=== PATIENT | female | born 1955 | race Hispanic/Latino ===

== ENCOUNTER 2016-10-26 10:43 | Emergency (ER) | payer MEDICARE, OTHER ==
[2016-10-26 11:13] VITALS: BP 139/89
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
[2016-10-26] MEDS ORDERED: TYLENOL PO ONE (12:51)
--- NOTE | 2016-10-26 13:23 | XRay Report ---
Left shoulder 3 views: Findings: Mild arthritic changes a.c. joint and glenohumeral joint. No fracture dislocation or soft tissue calcification. Normal acromiohumeral space. Impression: Arthritic changes a.c. joint and glenohumeral joint.
== END 2016-10-26 13:43 | disposition home or self-care (01) ==
LOC: ED 10:43
DX: M54.2 Cervicalgia (principal); I10 Essential (primary) hypertension; F17.200 Nicotine dependence, unspecified, uncomplicated; Z88.0 Allergy status to penicillin; Z88.8 Allergy status to other drugs, medicaments and biological substances; V89.2XXA Person injured in unspecified motor-vehicle accident, traffic, initial encounter; Y93.89 Activity, other specified; Y99.9 Unspecified external cause status; Y92.410 Unspecified street and highway as the place of occurrence of the external cause
CPT/HCPCS: 70450; 72125

== ENCOUNTER 2019-04-21 08:41 | Inpatient (IN) | payer MEDICARE ==
[2019-04-21] MEDS ORDERED: SODIUM CHLORIDE 0.9% 1000 ML 1,000 ML IV ONE (09:35)
[2019-04-21] MEDS ORDERED: LIDOCAINE 1%/EPINEPHRINE 1:100,000 VIAL (20 ML) INFILTRATI ONE ×2 (09:58)
[2019-04-21] MEDS ORDERED: SODIUM CHLORIDE 0.9% 500 ML 500 ML IV ONE ×2 (09:59→10:22)
[2019-04-21 10:26] LABS: Basophils % (Auto) 0.3 % (0.0-1.8); Eosinophils % (Auto) 0.1 % (0.0-4.3); Hemoglobin 14.9 gm/dl (10.1-14.3); Lymphocytes # (Auto) 0.6 K/mm3 (1.2-5.4); Lymphocytes % (Auto) 3.6 % (13.4-35.0); Mean Corpuscular HGB Conc 32 % (30-34); Mean Corpuscular Volume 97 fl (79-97); Monocytes % (Auto) 6.1 % (0.0-7.3); Platelet Count 295 K/mm3 (140-440); Red Blood Count 4.74 M/mm3 (3.65-5.03); Red Cell Distribution Width 13.3 % (13.2-15.2)
[2019-04-21 10:37] LABS: INR 1.05 (0.87-1.13)
[2019-04-21 10:38] LABS: Partial Thromboplastin Time 20.1 Sec. (24.2-36.6)
[2019-04-21 10:52] LABS: Albumin 3.5 g/dL (3.9-5); Bilirubin,Direct 1.2 mg/dL (0-0.2); Calcium 9.1 mg/dL (8.4-10.2)
--- NOTE | 2019-04-21 11:03 | Emergency Department Report ---
<MITCHELL MCDOWELL - Last Filed: 04/21/19 12:29> ED GI Bleed HPI - General Chief complaint: GI Bleed Stated complaint: RECTAL BLEEDING Time Seen by Provider: 04/21/19 09:20 Source: EMS Mode of arrival: Stretcher Limitations: Altered Mental Status - History of Present Illness Initial comments: This is a 64-year-old female toxic with acute signs of distress presents to the ED with c/o of gross hematochezia and abdominal pain 1 day. Patient stated has been drinking alcohol last night prior to the symptoms. Patient describes a bdominal pain as cramping and aching with level of 10/10 diffuse. Patient denies chest pain, short of breath, fever, chills, headache, stiff neck, numbness or tingling. Upon examination patient is lethargic. Patient denies any recent travels. Patient stated allergies to PCN. Patient stated PMH i ncludes hypertension. MD complaint: gross hematochezia -: days(s) Location: diffuse Radiation: none Severity scale (0 -10): 10 Quality: constant Consistency: constant Improves with: none Worsens with: none Context: alcohol abuse Associated Symptoms: abdominal pain, nausea, malaise. denies: vomiting, epistaxis, fever/chills, headaches, loss of appetite, easy bruising, rash, other bleeding, shortness of breath, syncope, weakness Treatments Prior to Arrival: none - Related Data Previous Rx's Medication Instructions Recorded Last Taken Type amLODIPine 10 mg PO QDAY #30 tablet 10/28/15 Unknown Rx cloNIDine [Catapres] 0.2 mg PO Q12HR #60 tablet 10/28/15 Unknown Rx lisinopriL [Zestril TAB] 40 mg PO QDAY #30 tablet 10/28/15 Unknown Rx Cyclobenzaprine [Flexeril] 10 mg PO TID PRN #12 tablet 10/26/16 Unknown Rx Ibuprofen [Motrin] 600 mg PO Q8H PRN #20 tablet 10/26/16 Unknown Rx Allergies Allergy/AdvReac Type Severity Reaction Status Date / Time Penicillins Allergy Severe Anaphylaxis Verified 10/26/16 11:08 meperidine HCl [From Demerol] AdvReac Intermediate Angioedema Verified 10/26/16 11:08 ED Review of Systems Constitutional: denies: chills, fever Eyes: denies: eye pain, eye discharge, vision change ENT: denies: ear pain, throat pain Respiratory: denies: cough, shortness of breath, wheezing Cardiovascular: denies: chest pain, palpitations Endocrine: no symptoms reported Gastrointestinal: abdominal pain, nausea, hematochezia. denies: vomiting, diarrhea, constipation, melena Genitourinary: denies: urgency, dysuria, discharge Musculoskeletal: denies: back pain, joint swelling, arthralgia Skin: denies: rash, lesions Neurological: denies: headache, weakness, paresthesias Psychiatric: denies: anxiety, depression Hematological/Lymphatic: denies: easy bleeding, easy bruising ED Past Medical Hx - Past Medical History Hx Hypertension: Yes Hx Congestive Heart Failure: No Hx Diabetes: No Hx Asthma: No Hx COPD: No - Social History Smoking Status: Current Every Day Smoker - Medications Home Medications: Home Medications Medication Instructions Recorded Confirmed Last Taken Type amLODIPine 10 mg PO QDAY #30 tablet 10/28/15 Unknown Rx cloNIDine [Catapres] 0.2 mg PO Q12HR #60 tablet 10/28/15 Unknown Rx lisinopriL [Zestril TAB] 40 mg PO QDAY #30 tablet 10/28/15 Unknown Rx Cyclobenzaprine [Flexeril] 10 mg PO TID PRN #12 tablet 10/26/16 Unknown Rx Ibuprofen [Motrin] 600 mg PO Q8H PRN #20 tablet 10/26/16 Unknown Rx ED Physical Exam - General Limitations: Altered Mental Status General appearance: alert, lethargic - Head Head exam: Present: atraumatic, normocephalic - Eye Eye exam: Present: normal appearance, PERRL, EOMI - Neck Neck exam: Present: normal inspection, full ROM. Absent: tenderness, meningismus, lymphadenopathy - Respiratory Respiratory exam: Present: normal lung sounds bilaterally. Absent: respiratory distress, wheezes - Cardiovascular Cardiovascular Exam: Present: regular rate, normal rhythm, normal heart sounds. Absent: bradycardia, tachycardia, irregular rhythm, systolic murmur, diastolic murmur, rubs, gallop - GI/Abdominal GI/Abdominal exam: Present: distended, tenderness, normal bowel sounds. Absent: guarding, rebound, rigid, diminished bowel sounds - Rectal Rectal exam: Present: normal rectal tone, heme (+) stool, bloody stool. Absent: fecal impaction, hemorrhoids, mass, tenderness - Extremities Exam Extremities exam: Present: full ROM - Back Exam Back exam: Present: full ROM - Neurological Exam Neurological exam: Present: alert, oriented X3 - Psychiatric Psychiatric exam: Present: flat affect - Skin Skin exam: Present: warm, dry, intact, normal color. Absent: rash ED Course - Consultations Consultation #1: 04/21/19 11:10 Patient has been consulted with Tin Boswell about patient history, physical e xam, and labs and examined and seen patient agrees to ED plan of care and admission. ED Medical Decision Making - Lab Data Result diagrams: 04/21/19 10:10 04/21/19 10:10 - Medical Decision Making This is a 64-year-old female that presents with GI bleed. Patient is stable currently and was examined by me and Dr. Campbell. Labs obtained. Labs obtained. Patient was resuscitated in the ER. 2 pack per blood cells administered. Vital signs improving. Dr. Valenzuela ([facility] gastroenter[facility]) has been consulted and agrees for admission. At time of admission, the patient does not seem toxic or ill in appearance. No acute signs of distress noted. Patient agrees to admission treatment plan of care. No further questions noted by the patient. ED Disposition Clinical Impression: Lower GI bleeding Hypotension Qualifiers: Hypotension type: unspecified hypotension type Qualified Code(s): I95.9 - Hypotension, unspecified Renal failure Qualifiers: Renal failure chronicity: acute on chronic Acute renal failure type: unspecified Chronic kidney disease stage: stage 4 (severe) Qualified Code(s): N17.9 - Acute kidney failure, unspecified Disposition: OP ADMIT IP TO THIS HOSP Condition: Stable Referrals: ANOOP LEE MD [Primary Care Provider] - 3-5 Days Forms: Accompanied Note <ALLISON CAMPBELL - Last Filed: 04/21/19 12:41> ED Review of Systems ROS: Stated complaint: RECTAL BLEEDING Other details as noted in HPI ED Course Vital Signs 04/21/19 04/21/19 10:22 12:14 Pulse Rate 63 68 Respiratory 15 18 Rate Blood Pressure 84/53 Blood Pressure 91/55 [Right] O2 Sat by Pulse 98 98 Oximetry - Reevaluation(s) Reevaluation #1: This is a pale and hypotensive patient on my encounter. She looks chronically ill and likely suffering from cirrhosis. She apparently has had bright red blood from her rectum today and a syncopal episode. She fell upon her knees and states that she actually tripped. However she is somewhat altered and I susp ect she probably passed out. She arrived with a blood pressure between 70 and 80 systolic. She was quite pale. She required emergency resuscitation. Patient stated that she had a history of uterine cancer but no history of GI bleeding Physical exam Very pale and poorly perfused conjunctiva HEENT dry mucosa Neck supple Chest clear to auscultation Cardiovascular tachycardic without murmur Abdomen hepatomegaly is suspected. Some mild and diffuse tenderness without distention or rebound Rectal exam per nurse practitioner Hoa no active bleeding no mass Neurological exam nonfocal lethargic Impression Significant if not massive lower GI bleeding Hypotension Cirrhosis Consider sepsis Procedure Central line right femoral vein Area was prepped and draped in usual fashion. It was anesthetized using about 8 mL of 1% lidocaine with epinephrine Access to dark venous blood was obtained. A 3 lm catheter was placed using the dilator and the usual Seldinger technique. It was sutured and dressed. Procedure was well tolerated. Plan Patient was given volume bolus. She was given 2 units of emergency release blood. Consult to GI doctor Abhay. He recommended a bleeding scan or CT angiogram of the patient's creatinine was normal. Further data and reassessment Patient's hemoglobin was remarkably normal. She does have an elevated white blood cell count. Blood cultures and lactic acid have been ordered. Cefepime has been ordered. Protonix has been ordered. A plain CT of the abdomen is ordered due to an elevated creatinine of greater than 3. A bleeding scan is ordered. The patient will be admitted to the hospitalist service probably the [facility] as her blood pressure has improved With the above intervention. On reassessment the patient was coherent with blood pressure about 100 systolic. Further diagnostic studies are pending. Additional diagnosis Abdominal pain etiology to be determined Renal failure probably acute Critical care time 70 minutes 04/21/19 11:18 ED Medical Decision Making - Lab Data Result diagrams: 04/21/19 10:10 04/21/19 10:10 Critical care attestation.: If time is entered above; I have spent that time in minutes in the direct care of this critically ill patient, excluding procedure time. ED Disposition Is pt being admited?: Yes Does the pt Need Aspirin: No Time of Disposition: :39
[2019-04-21] MEDS ORDERED: PANTOPRAZOLE 40 MG INJ IV ONE ×3 (11:26→23:55)
--- NOTE | 2019-04-21 11:34 | XRay Report ---
CHEST 1 VIEW INDICATION / CLINICAL INFORMATION: hypotension. COMPARISON: None available. FINDINGS: SUPPORT DEVICES: None. HEART / MEDIASTINUM: No significant abnormality. LUNGS / PLEURA: No significant pulmonary or pleural abnormality. No pneumothorax. ADDITIONAL FINDINGS: Mild subsegmental atelectasis is noted in both lower lungs. Eventration of the r ight hemidiaphragm. IMPRESSION: 1. No acute findings. Signer Name: Rd Zapata MD Signed: 04/21/2019 11:30 AM Workstation Name: [employer] ([id number]
[2019-04-21] MEDS ORDERED: MEROPENEM/NS 500 MG/50 ML 500 MG/50 ML BAG IV ONE (12:00)
[2019-04-21 12:20] LABS: Hematocrit 47.5 % (30.3-42.9); Hemoglobin 15.6 gm/dl (10.1-14.3); Mean Corpuscular HGB Conc 33 % (30-34); Mean Corpuscular Volume 96 fl (79-97); Platelet Count 225 K/mm3 (140-440); Red Blood Count 4.97 M/mm3 (3.65-5.03); Red Cell Distribution Width 14.7 % (13.2-15.2)
--- NOTE | 2019-04-21 12:20 | Cat Scan Report ---
CT abdomen pelvis wo con INDICATION / CLINICAL INFORMATION: abd pain. TECHNIQUE: All CT scans at this location are performed using CT dose reduction for ALARA by means of automated e xposure control. COMPARISON: None available. FINDINGS: Limited lower thoracic images show patchy opacity in the right lower lobe that could represent pneumo liam. ABDOMEN: Cholelithiasis. The liver, spleen, pancreas and kidneys are normal. No adrenal masses. No retroperitoneal adenopathy. A small fat-containing umbilical hernia is noted Fluid is demonstrated in the small bowel and colon. Mural edema and slight thickening of the transver se colon wall has the appearance of colitis. Pelvis: Small gas bubble is demonstrated in the urinary bladder, correlate for recent instrumentation. A 4 cm left ovarian cyst is identified. There are no dependent fluid collections seen in the pelvis. The appendix is normal. Degenerative changes are identified in the lumbar spine. IMPRESSION: 1. Colitis involving the transverse colon. 2. Airspace opacity in the right lower lobe may represent pneumonia. 3. Cholelithiasis. 4. 4 cm left ovarian cyst. 5. Umbilical hernia containing fat. Signer Name: Rd Zapata MD Signed: 04/21/2019 12:16 PM Workstation Name: [id number]
[2019-04-21] MEDS ORDERED: metroNIDAZOLE/NS 500 MG/100 ML 500 MG/100 ML BAG IV ONE (12:43)
[2019-04-21] MEDS ORDERED: ALBUTEROL 2.5 MG/3 ML NEBU IH PRN (13:47)
[2019-04-21] MEDS ORDERED: CYCLOBENZAPRINE 10 MG TAB PO PRN (13:48)
[2019-04-21 13:52] LABS: Band Neutrophils # (Manual) 5.5 K/mm3; Basophils % (Manual) 0 % (0.0-1.8); Eosinophils % (Manual) 0 % (0.0-4.3); Macrocytosis Few; Platelet Clumps Rare; Platelet Estimate Consistent w Auto; Total Cells Counted 100
[2019-04-21] MEDS ORDERED: SODIUM CHLORIDE 0.9% 1000 ML 1,000 ML IV SCH (14:00)
--- NOTE | 2019-04-21 14:06 | History and Physical Report ---
History of Present Illness Chief complaint: I can stop bleeding History of present illness: 64-year-old female with hypertension, nicotine dependence, alcohol dependence presents to ED for evaluation. Patient states that she was in her usual state of health but was awakened from sleep around 0300 hrs. and was found to have blood dripping from her backside. Patient also reports abdominal cramping over the past 1 day. Upon awakening from sleep this morning the patient was found to have experienced weakness and large volume blood coming from her her rectum. EMS was notified and upon arrival the patient was found to be in distress and transported to [facility]. Patient seen and evaluated in the emergency department. Patient lab and imaging studies reviewed. Patient found to have bright red blood per rectum on physical exam with blood in the rectal vault. Patient also found to have generalized weakness, lethargy. Pt hypotensive with Systolic blood pressure in the 70's. Patient rectal area is covered with blood, patient blood sheets are soaked with blood. GI team consulted in ED. Patient found to have active GI bleeding, acute kidney injury, systemic inflammatory response syndrome, and alcoholic liver disease. Patient admitted to [facility] for medical stabilization and treatment of GI bleed due to high likelihood of decompensation. Patient denies chest pain, short of breath, fever, chills, headache, stiff neck, numbness or tingling. No prior admission for review. No medication listed at time of admission for reconciliation. Past History Past Medical History: hypertension, other (see HPI) Past Surgical History: No surgical history, Other (reviewed) Social history: , smoking, alcohol abuse Family history: hypertension Medications and Allergies Allergies Allergy/AdvReac Type Severity Reaction Status Date / Time Penicillins Allergy Severe Anaphylaxis Verified 10/26/16 11:08 meperidine HCl [From Demerol] AdvReac Intermediate Angioedema Verified 10/26/16 11:08 Home Medications Medication Instructions Recorded Confirmed Last Taken Type amLODIPine 10 mg PO QDAY #30 tablet 10/28/15 Unknown Rx cloNIDine [Catapres] 0.2 mg PO Q12HR #60 tablet 10/28/15 Unknown Rx lisinopriL [Zestril TAB] 40 mg PO QDAY #30 tablet 10/28/15 Unknown Rx Cyclobenzaprine [Flexeril] 10 mg PO TID PRN #12 tablet 10/26/16 Unknown Rx Ibuprofen [Motrin] 600 mg PO Q8H PRN #20 tablet 10/26/16 Unknown Rx Active Meds: Active Medications Albuterol (Proventil) 2.5 mg IH Q3HRT PRN PRN Reason: Shortness Of Breath Cyclobenzaprine HCl (Flexeril) 10 mg PO TID PRN PRN Reason: Muscle Spasm Sodium Chloride (Nacl 0.9% 1000 Ml) 1,000 mls @ 42 mls/hr IV DIRECT DOMINGO Sodium Chloride (Sodium Chloride Flush Syringe 10 Ml) 10 ml IV BID DOMINGO Sodium Chloride (Sodium Chloride Flush Syringe 10 Ml) 10 ml IV PRN PRN PRN Reason: LINE FLUSH Review of Systems Constitutional: weakness, no weight gain, no fever, no chills Ears, nose, mouth and throat: no ear pain, no ear discharge, no tinnitis, no nose pain Breasts: no change in shape, no swelling, no mass Cardiovascular: no chest pain, no orthopnea, no palpitations, no edema Respiratory: no cough, no cough with sputum Gastrointestinal: diarrhea, BRBPR, no nausea, no vomiting, no constipation Genitourinary Female: no flank pain, no menorrhagia, no dysuria, no urinary frequency, no urgency Rectal: no pain, no incontinence, no bleeding Musculoskeletal: no neck stiffness, no neck pain, no shooting arm pain, no shooting leg pain, no leg numbness/tingling Integumentary: no rash, no pruritis, no redness, no wounds, no jaundice, no boils Neurological: no transient paralysis, no paralysis, no parathesias, no numbness, no tremors Psychiatric: no memory loss, no sleep disturbances, no insomnia, no hypersomnia, no change in appetite, no suicidal ideation, no disorientation Endocrine: no cold intolerance, no polyphagia, no polydipsia, no nocturia, no excessive sweating Hematologic/Lymphatic: no easy bruising, no lymphadenopathy, no lymphedema Allergic/Immunologic: no urticaria, no allergic rhinitis, no wheezing, no persistent infections, no anaphylaxis Exam - Constitutional Vitals: Temp Pulse Resp BP Pulse Ox 97.4 F L 76 18 124/66 98 04/21/19 13:25 04/21/19 13:25 04/21/19 13:25 04/21/19 13:25 12/25/19 13:25 General appearance: Present: mild distress, disheveled - EENT Eyes: Present: PERRL ENT: hearing intact, clear oral mucosa - Neck Neck: Present: supple, normal ROM - Respiratory Respiratory effort: normal Respiratory: bilateral: CTA - Cardiovascular Rhythm: other (tachycardia) Heart Sounds: Present: S1 & S2. Absent: rub, click - Extremities Extremities: pulses symmetrical, No edema Peripheral Pulses: within normal limits - Abdominal General gastrointestinal: Present: soft, non-tender, non-distended, normal bowel sounds Female genitourinary: Present: normal - Integumentary Integumentary: Present: clear, warm, dry - Musculoskeletal Musculoskeletal: gait normal, strength equal bilaterally - Psychiatric Psychiatric: appropriate mood/affect, intact judgment & insight - Neurologic Neurologic: CNII-XII intact, moves all extremities Results - Labs CBC & Chem 7: 04/21/19 11:43 04/21/19 10:10 Labs: Abnormal lab results 04/21/19 04/21/19 04/21/19 Range/Units 10:10 10:10 10:10 WBC 15.9 H (4.5-11.0) K/mm3 Hgb 14.9 H (10.1-14.3) gm/dl Hct 46.0 H (30.3-42.9) % Lymph % (Auto) 3.6 L (13.4-35.0) % Lymph # 0.6 L (1.2-5.4) K/mm3 Berks # 1.0 H (0.0-0.8) K/mm3 Seg Neutrophils % 89.9 H (40.0-70.0) % Lymphocytes % (Manual) (13.4-35.0) % Seg Neutrophils # 14.3 H (1.8-7.7) K/mm3 Seg Neutrophils # Man (1.8-7.7) K/mm3 Lymphocytes # (Manual) (1.2-5.4) K/mm3 APTT 20.1 L (24.2-36.6) Sec. Carbon Dioxide 17 L (22-30) mmol/L BUN 49 H (7-17) mg/dL Creatinine 3.5 H (0.7-1.2) mg/dL Glucose 124 H (65-100) mg/dL Total Bilirubin 1.80 H (0.1-1.2) mg/dL Direct Bilirubin 1.2 H (0-0.2) mg/dL AST 102 H (5-40) units/L ALT 82 H (7-56) units/L Alkaline Phosphatase 150 H (35-129) units/L Albumin 3.5 L (3.9-5) g/dL Crossmatch 04/21/19 04/21/19 Range/Units 10:10 11:43 WBC 14.9 H (4.5-11.0) K/mm3 Hgb 15.6 H (10.1-14.3) gm/dl Hct 47.5 H (30.3-42.9) % Lymph % (Auto) (13.4-35.0) % Lymph # (1.2-5.4) K/mm3 Berks # (0.0-0.8) K/mm3 Seg Neutrophils % (40.0-70.0) % Lymphocytes % (Manual) 6.0 L (13.4-35.0) % Seg Neutrophils # (1.8-7.7) K/mm3 Seg Neutrophils # Man 8.0 H (1.8-7.7) K/mm3 Lymphocytes # (Manual) 0.9 L (1.2-5.4) K/mm3 APTT (24.2-36.6) Sec. Carbon Dioxide (22-30) mmol/L BUN (7-17) mg/dL Creatinine (0.7-1.2) mg/dL Glucose (65-100) mg/dL Total Bilirubin (0.1-1.2) mg/dL Direct Bilirubin (0-0.2) mg/dL AST (5-40) units/L ALT (7-56) units/L Alkaline Phosphatase (35-129) units/L Albumin (3.9-5) g/dL Crossmatch See Detail Assessment and Plan - Patient Problems (1) GI bleed Current Visit: Yes Status: Acute Qualifiers: GI bleed type/associated pathology: melena Qualified Code(s): K92.1 - Melena Plan to address problem: Patient admitted to [facility], GI consulted in emergency department, IV PPI therapy, serial CBC every 6 hours, notify GI team if hemoglobin drops more than 1 g on successive CBCs, if patient rebleeds order stat repeat bleeding scan, and notify GI team. (2) SHAZIA (acute kidney injury) Current Visit: Yes Status: Acute Plan to address problem: IV fluid resuscitation therapy, monitor urine output every shift, urine electrolytes, BMP, repeat BMP in a.m., monitor serum creatinine. (3) SIRS (systemic inflammatory response syndrome) Current Visit: Yes Status: Acute Plan to address problem: CBC, CMP, chest x-ray, urinalysis, empiric antibiotic therapy, repeat CBC in a.m., IV fluid resuscitation therapy. (4) EtOH dependence Current Visit: Yes Status: Acute Qualifiers: Complication of substance-induced condition: with perceptual disturbance Plan to address problem: CIWA protocol, banana bag, supportive care, IV Ativan as needed. (5) Nicotine dependence unspecified, with withdrawal Current Visit: Yes Status: Acute Qualifiers: Nicotine product type: cigarettes Qualified Code(s): F17.213 - Nicotine dependence, cigarettes, with withdrawal Plan to address problem: Smoking cessation counseling supportive care ,+15 minutes (6) DVT prophylaxis Current Visit: Yes Status: Acute Plan to address problem: SCD to bilateral lower extremities while in bed, hold anticoagulation now due to GI bleeding
[2019-04-21] MEDS ORDERED: LORazepam 2 MG/ML VIAL IV PRN (14:14)
[2019-04-21] MEDS ORDERED: THIAMINE 100 MG, FOLIC ACID 1 MG, MULTIPLE VITAMIN INJ, ADULT 10 ML in SODIUM CHLORIDE ... IV ONE (14:30)
--- NOTE | 2019-04-21 15:19 | Gastroenterology Consultation ---
History of Present Illness - Reason for Consult Consult date: 04/21/19 hematochezia Requesting physician: ALLISON CAMPBELL - History of Present Illness This is a 64-year-old female here with severe gross hematochezia and abdominal pain 1 day. Patient denies history GI bleed. She reports was drinking alcohol last night prior to the symptoms. She developed right sided abdominal pain that is cramping, severe, radiates to the entire abd, worse with nothing better with nothing, then developed associated gary hematochezia and came to ER Here she just had a large frankly blood BM, handing me a bed rivera filled with gary blood. Home meds reviewed/reconciled/updated Past History Past Medical History: other (HTN) Past Surgical History: No surgical history Social history: other (socail EtOh) Family history: no significant family history Medications and Allergies Allergies Allergy/AdvReac Type Severity Reaction Status Date / Time Penicillins Allergy Severe Anaphylaxis Verified 10/26/16 11:08 meperidine HCl [From Demerol] AdvReac Intermediate Angioedema Verified 10/26/16 11:08 Home Medications Medication Instructions Recorded Confirmed Last Taken Type amLODIPine 10 mg PO QDAY #30 tablet 10/28/15 Unknown Rx cloNIDine [Catapres] 0.2 mg PO Q12HR #60 tablet 10/28/15 Unknown Rx lisinopriL [Zestril TAB] 40 mg PO QDAY #30 tablet 10/28/15 Unknown Rx Cyclobenzaprine [Flexeril] 10 mg PO TID PRN #12 tablet 10/26/16 Unknown Rx Ibuprofen [Motrin] 600 mg PO Q8H PRN #20 tablet 10/26/16 Unknown Rx Active Meds: Active Medications Albuterol (Proventil) 2.5 mg IH Q3HRT PRN PRN Reason: Shortness Of Breath Cyclobenzaprine HCl (Flexeril) 10 mg PO TID PRN PRN Reason: Muscle Spasm Sodium Chloride (Nacl 0.9% 1000 Ml) 1,000 mls @ 42 mls/hr IV DIRECT DOMINGO Thiamine HCl 100 mg/ Folic Acid 1 mg/ Multivitamins/Minerals 10 ml/ Sodium Chloride 1,011.2 mls @ 250 mls/hr IV ONCE ONE Stop: 04/21/19 18:32 Lorazepam (Ativan) 2 mg IV Q1HR PRN PRN Reason: CIWA-Ar 8-15 Sodium Chloride (Sodium Chloride Flush Syringe 10 Ml) 10 ml IV BID DOMINGO Sodium Chloride (Sodium Chloride Flush Syringe 10 Ml) 10 ml IV PRN PRN PRN Reason: LINE FLUSH Review of Systems - Review of Systems All systems: negative (fatigue, weakness) Exam - Constitutional Vital Signs: Temp Pulse Resp BP Pulse Ox 97.4 F L 76 18 124/66 98 04/21/19 13:25 04/21/19 13:25 04/21/19 13:25 04/21/19 13:25 04/21/19 13:25 General appearance: mild distress - EENT Eyes: EOM intact - Neck Neck: supple - Respiratory Respiratory effort: labored - Cardiovascular Rhythm: regular (tachy) - Gastrointestinal General gastrointestinal: Present: tender - Integumentary Integumentary: Present: dry - Neurologic Neurological: other - Psychiatric Psychiatric: agitated - Labs CBC & Chem 7: 04/21/19 11:43 04/21/19 10:10 Lab Results: Laboratory Results - last 24 hr 04/21/19 04/21/19 04/21/19 10:10 10:10 10:10 WBC 15.9 H RBC 4.74 Hgb 14.9 H Hct 46.0 H MCV 97 MCH 31 MCHC 32 RDW 13.3 Plt Count 295 Lymph % (Auto) 3.6 L Union % (Auto) 6.1 Eos % (Auto) 0.1 Baso % (Auto) 0.3 Lymph # 0.6 L Union # 1.0 H Eos # 0.0 Baso # 0.0 Add Manual Diff Total Counted Seg Neutrophils % 89.9 H Seg Neuts % (Manual) Band Neutrophils % Lymphocytes % (Manual) Reactive Lymphs % (Man) Monocytes % (Manual) Eosinophils % (Manual) Basophils % (Manual) Metamyelocytes % Myelocytes % Promyelocytes % Blast Cells % Nucleated RBC % Seg Neutrophils # 14.3 H Seg Neutrophils # Man Band Neutrophils # Lymphocytes # (Manual) Abs React Lymphs (Man) Monocytes # (Manual) Eosinophils # (Manual) Basophils # (Manual) Metamyelocytes # Myelocytes # Promyelocytes # Blast Cells # WBC Morphology Hypersegmented Neuts Hyposegmented Neuts Hypogranular Neuts Smudge Cells Toxic Granulation Toxic Vacuolation Dohle Bodies Pelger-Huet Anomaly Kelsey Rods Platelet Estimate Clumped Platelets Plt Clumps, EDTA Large Platelets Giant Platelets Platelet Satelliting Plt Morphology Comment RBC Morphology Dimorphic RBCs Polychromasia Hypochromasia Poikilocytosis Anisocytosis Microcytosis Macrocytosis Spherocytes Pappenheimer Bodies Sickle Cells Target Cells Tear Drop Cells Ovalocytes Helmet Cells Etienne-Dunmore Bodies Butler Rings Elwood Cells Bite Cells Crenated Cell Elliptocytes Acanthocytes (Spur) Rouleaux Hemoglobin C Crystals Schistocytes Malaria parasites Riely Bodies Hem Pathologist Commnt PT 13.8 INR 1.05 APTT 20.1 L Sodium Potassium Chloride Carbon Dioxide Anion Gap BUN Creatinine Estimated GFR BUN/Creatinine Ratio Glucose Lactic Acid Calcium Total Bilirubin Direct Bilirubin Indirect Bilirubin AST ALT Alkaline Phosphatase Ammonia Troponin T < 0.010 Total Protein Albumin Albumin/Globulin Ratio Lipase 32 Blood Type Antibody Screen Crossmatch 04/21/19 04/21/19 04/21/19 10:10 10:10 10:39 WBC RBC Hgb Hct MCV MCH MCHC RDW Plt Count Lymph % (Auto) Union % (Auto) Eos % (Auto) Baso % (Auto) Lymph # Union # Eos # Baso # Add Manual Diff Total Counted Seg Neutrophils % Seg Neuts % (Manual) Band Neutrophils % Lymphocytes % (Manual) Reactive Lymphs % (Man) Monocytes % (Manual) Eosinophils % (Manual) Basophils % (Manual) Metamyelocytes % Myelocytes % Promyelocytes % Blast Cells % Nucleated RBC % Seg Neutrophils # Seg Neutrophils # Man Band Neutrophils # Lymphocytes # (Manual) Abs React Lymphs (Man) Monocytes # (Manual) Eosinophils # (Manual) Basophils # (Manual) Metamyelocytes # Myelocytes # Promyelocytes # Blast Cells # WBC Morphology Hypersegmented Neuts Hyposegmented Neuts Hypogranular Neuts Smudge Cells Toxic Granulation Toxic Vacuolation Dohle Bodies Pelger-Huet Anomaly Kelsey Rods Platelet Estimate Clumped Platelets Plt Clumps, EDTA Large Platelets Giant Platelets Platelet Satelliting Plt Morphology Comment RBC Morphology Dimorphic RBCs Polychromasia Hypochromasia Poikilocytosis Anisocytosis Microcytosis Macrocytosis Spherocytes Pappenheimer Bodies Sickle Cells Target Cells Tear Drop Cells Ovalocytes Helmet Cells Etienne-Dunmore Bodies Butler Rings Elwood Cells Bite Cells Crenated Cell Elliptocytes Acanthocytes (Spur) Rouleaux Hemoglobin C Crystals Schistocytes Malaria parasites Riley Bodies Hem Pathologist Commnt PT INR APTT Sodium 138 Potassium 4.6 Chloride 98.6 Carbon Dioxide 17 L Anion Gap 27 BUN 49 H Creatinine 3.5 H Estimated GFR 13 BUN/Creatinine Ratio 14 Glucose 124 H Lactic Acid Calcium 9.1 Total Bilirubin 1.80 H Direct Bilirubin 1.2 H Indirect Bilirubin 0.6 AST 102 H ALT 82 H Alkaline Phosphatase 150 H Ammonia 59.0 Troponin T Total Protein 7.5 Albumin 3.5 L Albumin/Globulin Ratio 0.9 Lipase Blood Type A NEGATIVE Antibody Screen Negative Crossmatch See Detail 04/21/19 04/21/19 04/21/19 11:43 11:43 11:43 WBC 14.9 H RBC 4.97 Hgb 15.6 H Hct 47.5 H MCV 96 MCH 32 MCHC 33 RDW 14.7 Plt Count 225 Lymph % (Auto) Bunk Assembler Union % (Auto) Bunk Assembler Eos % (Auto) Bunk Assembler Baso % (Auto) Bunk Assembler Lymph # Bunk Assembler Union # Bunk Assembler Eos # Bunk Assembler Baso # Bunk Assembler Add Manual Diff Complete Total Counted 100 Seg Neutrophils % Bunk Assembler Seg Neuts % (Manual) 54.0 Band Neutrophils % 37.0 Lymphocytes % (Manual) 6.0 L Reactive Lymphs % (Man) 0 Monocytes % (Manual) 1.0 Eosinophils % (Manual) 0 Basophils % (Manual) 0 Metamyelocytes % 2.0 Myelocytes % 0 Promyelocytes % 0 Blast Cells % 0 Nucleated RBC % Not Reportable Seg Neutrophils # Bunk Assembler Seg Neutrophils # Man 8.0 H Band Neutrophils # 5.5 Lymphocytes # (Manual) 0.9 L Abs React Lymphs (Man) 0.0 Monocytes # (Manual) 0.1 Eosinophils # (Manual) 0.0 Basophils # (Manual) 0.0 Metamyelocytes # 0.3 Myelocytes # 0.0 Promyelocytes # 0.0 Blast Cells # 0.0 WBC Morphology Not Reportable Hypersegmented Neuts Not Reportable Hyposegmented Neuts Not Reportable Hypogranular Neuts Not Reportable Smudge Cells Not Reportable Toxic Granulation Not Reportable Toxic Vacuolation Not Reportable Dohle Bodies Not Reportable Pelger-Huet Anomaly Not Reportable Kelsey Rods Not Reportable Platelet Estimate Consistent w auto Clumped Platelets Rare Plt Clumps, EDTA Not Reportable Large Platelets Not Reportable Giant Platelets Not Reportable Platelet Satelliting Not Reportable Plt Morphology Comment Not Reportable RBC Morphology Not Reportable Dimorphic RBCs Not Reportable Polychromasia Not Reportable Hypochromasia Not Reportable Poikilocytosis Not Reportable Anisocytosis Not Reportable Microcytosis Not Reportable Macrocytosis Few Spherocytes Not Reportable Pappenheimer Bodies Not Reportable Sickle Cells Not Reportable Target Cells Not Reportable Tear Drop Cells Not Reportable Ovalocytes Not Reportable Helmet Cells Not Reportable Etienne-Dunmore Bodies Not Reportable Butler Rings Not Reportable Elwood Cells Not Reportable Bite Cells Not Reportable Crenated Cell Not Reportable Elliptocytes Not Reportable Acanthocytes (Spur) Not Reportable Rouleaux Not Reportable Hemoglobin C Crystals Not Reportable Schistocytes Not Reportable Malaria parasites Not Reportable Riley Bodies Not Reportable Hem Pathologist Commnt No PT INR APTT Sodium Potassium Chloride Carbon Dioxide Anion Gap BUN Creatinine Estimated GFR BUN/Creatinine Ratio Glucose Lactic Acid 1.80 Calcium Total Bilirubin Direct Bilirubin Indirect Bilirubin AST ALT Alkaline Phosphatase Ammonia Troponin T < 0.010 Total Protein Albumin Albumin/Globulin Ratio Lipase Blood Type Antibody Screen Crossmatch Assessment and Plan Patient with severe acute LGIB, an SHAZIA so do not recommend CTA, rather send for STAT tagged RBC scan. If pos call IR If neg will reassess for poss colon in AM Maintain NPO DDx includes diverticular bleed, ischemia, AVM, mass, etc - Patient Problems (1) Lower GI bleeding Current Visit: Yes Status: Acute
--- NOTE | 2019-04-21 16:09 | Nuclear Medicine Report ---
NM GI bleeding scan INDICATION / CLINICAL INFORMATION: lower GI bleeding, hypotension. TRACER: Technetium 99m tagged red blood cells COMPARISON: None. FINDINGS: Physiologic uptake of tracer is noted. Uptake at the left upper quadrant likely represents free tech within the stomach. No active bleeding site identified. IMPRESSION: Negative for active bleeding site. Signer Name: Byron Jarrett MD Signed: 04/21/2019 4:05 PM Workstation Name: [id number]
[2019-04-21] MEDS ORDERED: POLYETHYLENE GLYCOL/ELECT SOLN 4000 ML PO ONE (17:15)
--- NOTE | 2019-04-21 17:17 | Event Note ---
Date: 04/21/19 tagged RBC scan neg, reviewed with radiologist and he confirms it's negative Q6H CBC, transfuse PRN goal Hgb over 7 Prepping tonight for colonoscopy tomorrow for GIB (start with colon, if neg will do EGD) If patient clinically rebleeds overnight (again has major hematochezia with hemodynamic changes) please repeat the tagged RBC scan STAT (the technetium is still in her system so would not need to be re-injected) and if positive call IR STAT
[2019-04-21 22:17] LABS: Hematocrit 50.8 % (30.3-42.9); Hemoglobin 17.2 gm/dl (10.1-14.3); Mean Corpuscular HGB Conc 34 % (30-34); Mean Corpuscular Volume 94 fl (79-97); Platelet Count 247 K/mm3 (140-440); Red Cell Distribution Width 14.7 % (13.2-15.2)
[2019-04-22 00:02] LABS: Bacteria,Urine 1+ /HPF (Negative)
[2019-04-22] MEDS: PANTOPRAZOLE 40 MG INJ IV SCH ×3 (00:09→22:44)
[2019-04-22 00:28] LABS: Bilirubin,Urine NEG (Negative); Blood,Urine LG (Negative); Color,Urine Amber (Yellow)
[2019-04-22 00:40] LABS: Creatinine,Urine 92.6 mg/dL (0.1-20.0)
[2019-04-22 01:37] LABS: Band Neutrophils # (Manual) 0.7 K/mm3; Basophils % (Manual) 0 % (0.0-1.8); Eosinophils % (Manual) 0 % (0.0-4.3); Total Cells Counted 100
[2019-04-22 01:38] LABS: Platelet Estimate Consistent w Auto
[2019-04-22 03:01] LABS: Basophils % (Auto) 0.3 % (0.0-1.8); Eosinophils # (Auto) 0.1 K/mm3 (0.0-0.4); Eosinophils % (Auto) 0.5 % (0.0-4.3); Hemoglobin 18.4 gm/dl (10.1-14.3); Lymphocytes # (Auto) 0.8 K/mm3 (1.2-5.4); Lymphocytes % (Auto) 6.7 % (13.4-35.0); Mean Corpuscular HGB Conc 33 % (30-34); Mean Corpuscular Volume 95 fl (79-97); Monocytes # (Auto) 1.2 K/mm3 (0.0-0.8); Monocytes % (Auto) 9.5 % (0.0-7.3); Platelet Count 212 K/mm3 (140-440); Red Blood Count 5.85 M/mm3 (3.65-5.03); Red Cell Distribution Width 14.7 % (13.2-15.2)
[2019-04-22 03:03] LABS: Hematocrit 55.4 % (30.3-42.9)
[2019-04-22 06:01] LABS: Hematocrit 49.6 % (30.3-42.9); Hemoglobin 16.9 gm/dl (10.1-14.3); Mean Corpuscular HGB Conc 34 % (30-34); Mean Corpuscular Volume 92 fl (79-97); Platelet Count 244 K/mm3 (140-440); Red Blood Count 5.37 M/mm3 (3.65-5.03); Red Cell Distribution Width 14.6 % (13.2-15.2)
[2019-04-22 10:02] LABS: Total Cells Counted 100
[2019-04-22 10:03] LABS: Band Neutrophils # (Manual) 4.8 K/mm3; Basophils % (Manual) 0 % (0.0-1.8); Eosinophils % (Manual) 0 % (0.0-4.3); Platelet Estimate Consistent w Auto; RBC Morphology Normal
[2019-04-22] MEDS ORDERED: PANTOPRAZOLE 40 MG INJ IV ONE (10:13)
[2019-04-22] MEDS ORDERED: SODIUM CHLORIDE P/F VIAL 10 ML 10 ML ONE (10:13)
--- NOTE | 2019-04-22 13:37 | Progress Note ---
Assessment and Plan Assessment and plan: Acute lower GI bleed. RBC scan was negative therefore GI to proceed with colonoscopy today. Continue IV PPI therapy, serial CBCs . Acute kidney injury. Continue IV fluid resuscitation. Follow-up BMP. SIRS. Follow-up chest x-ray, urinalysis and continue empiric antibiotics EtOH dependence. Continue CIWA protocol. History Interval history: No new issues overnight. Hospitalist Physical - Constitutional Vitals: Temp Pulse Resp BP Pulse Ox 97.4 F L 95 H 30 H 129/74 94 04/21/19 13:25 04/22/19 12:01 04/22/19 12:01 04/22/19 12:04/22/19 12:01 General appearance: Present: mild distress, disheveled - EENT Eyes: Present: PERRL, EOM intact ENT: hearing intact, clear oral mucosa, dentition normal - Neck Neck: Present: supple, normal ROM - Respiratory Respiratory effort: normal Respiratory: bilateral: CTA - Cardiovascular Rhythm: regular Heart Sounds: Present: S1 & S2. Absent: gallop, rub - Extremities Extremities: no ischemia, No edema, Full ROM - Abdominal General gastrointestinal: soft, non-tender, non-distended, normal bowel sounds - Integumentary Integumentary: Present: clear, warm, dry - Neurologic Neurologic: CNII-XII intact, moves all extremities Results - Labs CBC & Chem 7: 04/22/19 05:44 04/21/19 10:10 Labs: Laboratory Last Values WBC 11.0 K/mm3 (4.5-11.0) 04/22/19 05:44 RBC 5.37 M/mm3 (3.65-5.03) H 04/22/19 05:44 Hgb 16.9 gm/dl (10.1-14.3) H 04/22/19 05:44 Hct 49.6 % (30.3-42.9) H 04/22/19 05:44 MCV 92 fl (79-97) 04/22/19 05:44 MCH 32 pg (28-32) 04/22/19 05:44 MCHC 34 % (30-34) 04/22/19 05:44 RDW 14.6 % (13.2-15.2) 04/22/19 05:44 Plt Count 244 K/mm3 (140-440) 04/22/19 05:44 Lymph % (Auto) 6.7 % (13.4-35.0) L 04/22/19 01:52 [place] % (Auto) 9.5 % (0.0-7.3) H 04/22/19 01:52 Eos % (Auto) 0.5 % (0.0-4.3) 04/22/19 01:52 Baso % (Auto) 0.3 % (0.0-1.8) 04/22/19 01:52 Lymph # 0.8 K/mm3 (1.2-5.4) L 04/22/19 01:52 [place] # 1.2 K/mm3 (0.0-0.8) H 04/22/19 01:52 Eos # 0.1 K/mm3 (0.0-0.4) 04/22/19 01:52 Baso # 0.0 K/mm3 (0.0-0.1) 04/22/19 01:52 Add Manual Diff Complete 04/22/19 05:44 Total Counted 100 04/22/19 05:44 Seg Neutrophils % 83.0 % (40.0-70.0) H 04/22/19 01:52 Seg Neuts % (Manual) 46.0 % (40.0-70.0) 04/22/19 05:44 Band Neutrophils % 44.0 % 04/22/19 05:44 Lymphocytes % (Manual) 6.0 % (13.4-35.0) L 04/22/19 05:44 Reactive Lymphs % (Man) 0 % 04/22/19 05:44 Monocytes % (Manual) 4.0 % (0.0-7.3) 04/22/19 05:44 Eosinophils % (Manual) 0 % (0.0-4.3) 04/22/19 05:44 Basophils % (Manual) 0 % (0.0-1.8) 04/22/19 05:44 Metamyelocytes % 0 % 04/22/19 05:44 Myelocytes % 0 % 04/22/19 05:44 Promyelocytes % 0 % 04/22/19 05:44 Blast Cells % 0 % 04/22/19 05:44 Nucleated RBC % Not Reportable 04/22/19 05:44 Seg Neutrophils # 10.2 K/mm3 (1.8-7.7) H 04/22/19 01:52 Seg Neutrophils # Man 5.1 K/mm3 (1.8-7.7) 04/22/19 05:44 Band Neutrophils # 4.8 K/mm3 04/22/19 05:44 Lymphocytes # (Manual) 0.7 K/mm3 (1.2-5.4) L 04/22/19 05:44 Abs React Lymphs (Man) 0.0 K/mm3 04/22/19 05:44 Monocytes # (Manual) 0.4 K/mm3 (0.0-0.8) 04/22/19 05:44 Eosinophils # (Manual) 0.0 K/mm3 (0.0-0.4) 04/22/19 05:44 Basophils # (Manual) 0.0 K/mm3 (0.0-0.1) 04/22/19 05:44 Metamyelocytes # 0.0 K/mm3 04/22/19 05:44 Myelocytes # 0.0 K/mm3 04/22/19 05:44 Promyelocytes # 0.0 K/mm3 04/22/19 05:44 Blast Cells # 0.0 K/mm3 04/22/19 05:44 WBC Morphology Not Reportable 04/22/19 05:44 Hypersegmented Neuts Not Reportable 04/22/19 05:44 Hyposegmented Neuts Not Reportable 04/22/19 05:44 Hypogranular Neuts Not Reportable 04/22/19 05:44 Smudge Cells Not Reportable 04/22/19 05:44 Toxic Granulation Not Reportable 04/22/19 05:44 Toxic Vacuolation Not Reportable 04/22/19 05:44 Dohle Bodies Not Reportable 04/22/19 05:44 Pelger-Huet Anomaly Not Reportable 04/22/19 05:44 Kelsey Rods Not Reportable 04/22/19 05:44 Platelet Estimate Consistent w auto 04/22/19 05:44 Clumped Platelets Not Reportable 04/22/19 05:44 Plt Clumps, EDTA Not Reportable 04/22/19 05:44 Large Platelets Not Reportable 04/22/19 05:44 Giant Platelets Not Reportable 04/22/19 05:44 Platelet Satelliting Not Reportable 04/22/19 05:44 Plt Morphology Comment Not Reportable 04/22/19 05:44 RBC Morphology Normal 04/22/19 05:44 Dimorphic RBCs Not Reportable 04/22/19 05:44 Polychromasia Not Reportable 04/22/19 05:44 Hypochromasia Not Reportable 04/22/19 05:44 Poikilocytosis Not Reportable 04/22/19 05:44 Anisocytosis Not Reportable 04/22/19 05:44 Microcytosis Not Reportable 04/22/19 05:44 Macrocytosis Not Reportable 04/22/19 05:44 Spherocytes Not Reportable 04/22/19 05:44 Pappenheimer Bodies Not Reportable 04/22/19 05:44 Sickle Cells Not Reportable 04/22/19 05:44 Target Cells Not Reportable 04/22/19 05:44 Tear Drop Cells Not Reportable 04/22/19 05:44 Ovalocytes Not Reportable 04/22/19 05:44 Helmet Cells Not Reportable 04/22/19 05:44 [place] Bodies Not Reportable 04/22/19 05:44 [place] Rings Not Reportable 04/22/19 05:44 [place] Cells Not Reportable 04/22/19 05:44 Bite Cells Not Reportable 04/22/19 05:44 Crenated Cell Not Reportable 04/22/19 05:44 Elliptocytes Not Reportable 04/22/19 05:44 Acanthocytes (Spur) Not Reportable 04/22/19 05:44 Rouleaux Not Reportable 04/22/19 05:44 Hemoglobin C Crystals Not Reportable 04/22/19 05:44 Schistocytes Not Reportable 04/22/19 05:44 Malaria parasites Not Reportable 04/22/19 05:44 Riley Bodies Not Reportable 04/22/19 05:44 Hem Pathologist Commnt No 04/22/19 05:44 PT 13.8 Sec. (12.2-14.9) 04/21/19 10:10 INR 1.05 (0.87-1.13) 04/21/19 10:10 APTT 20.1 Sec. (24.2-36.6) L 04/21/19 10:10 Sodium 138 mmol/L (137-145) 04/21/19 10:10 Potassium 4.6 mmol/L (3.6-5.0) 04/21/19 10:10 Chloride 98.6 mmol/L (98-107) 04/21/19 10:10 Carbon Dioxide 17 mmol/L (22-30) L 04/21/19 10:10 Anion Gap 27 mmol/L 04/21/19 10:10 BUN 49 mg/dL (7-17) H 04/21/19 10:10 Creatinine 3.5 mg/dL (0.7-1.2) H 04/21/19 10:10 Estimated GFR 13 ml/min 04/21/19 10:10 BUN/Creatinine Ratio 14 % 04/21/19 10:10 Glucose 124 mg/dL (65-100) H 04/21/19 10:10 Lactic Acid 1.80 mmol/L (0.7-2.0) 04/21/19 11:43 Calcium 9.1 mg/dL (8.4-10.2) 04/21/19 10:10 Total Bilirubin 1.80 mg/dL (0.1-1.2) H 04/21/19 10:10 Direct Bilirubin 1.2 mg/dL (0-0.2) H 04/21/19 10:10 Indirect Bilirubin 0.6 mg/dL 04/21/19 10:10 AST 102 units/L (5-40) H 04/21/19 10:10 ALT 82 units/L (7-56) H 04/21/19 10:10 Alkaline Phosphatase 150 units/L (35-129) H 04/21/19 10:10 Ammonia 59.0 umol/L (25-60) 04/21/19 10:39 Troponin T < 0.010 ng/mL (0.00-0.029) 04/21/19 11:43 Total Protein 7.5 g/dL (6.3-8.2) 04/21/19 10:10 Albumin 3.5 g/dL (3.9-5) L 04/21/19 10:10 Albumin/Globulin Ratio 0.9 % 04/21/19 10:10 Lipase 32 units/L (13-60) 04/21/19 10:10 Urine Color [place] (Yellow) 04/21/19 23:14 Urine Turbidity Slightly-cloudy (Clear) 04/21/19 23:14 Urine pH 5.0 (5.0-7.0) 04/21/19 23:14 Ur Specific [place] 1.016 (1.003-1.030) 04/21/19 23:14 Urine Protein 30 mg/dl mg/dL (Negative) 04/21/19 23:14 Urine Glucose (UA) Neg mg/dL (Negative) 04/21/19 23:14 Urine Ketones Neg mg/dL (Negative) 04/21/19 23:14 Urine Blood Lg (Negative) 04/21/19 23:14 Urine Nitrite Neg (Negative) 04/21/19 23:14 Ur Reducing Substances Not Reportable 04/21/19 23:14 Urine Bilirubin Neg (Negative) 04/21/19 23:14 Urine Ictotest Not Reportable 04/21/19 23:14 Urine Urobilinogen 4.0 mg/dL (<2.0) 04/21/19 23:14 Ur Leukocyte Esterase Tr (Negative) 04/21/19 23:14 Urine WBC (Auto) 8.0 /HPF (0.0-6.0) H 04/21/19 23:14 Urine RBC (Auto) 12.0 /HPF (0.0-6.0) 04/21/19 23:14 U Epithel Cells (Auto) 3.0 /HPF (0-13.0) 04/21/19 23:14 Urine Bacteria (Auto) 1+ /HPF (Negative) 04/21/19 23:14 Urine Creatinine 92.6 mg/dL (0.1-20.0) H 04/21/19 23:26 Urine Sodium 77 mmol/L 04/21/19 23:26 Blood Type A NEGATIVE 04/21/19 10:10 Antibody Screen Negative 04/21/19 10:10 Crossmatch See Detail 04/21/19 10:10 Active Medications - Current Medications Current Medications: Generic Name Dose Route Start Last Admin Trade Name Freq PRN Reason Stop Dose Admin Albuterol 2.5 mg 04/21/19 13:47 Proventil IH Q3HRT PRN Shortness Of Breath Cyclobenzaprine HCl 10 mg 04/21/19 13:48 Flexeril PO TID PRN Muscle Spasm Sodium Chloride 1,000 mls @ 42 mls/hr 04/21/19 14:00 Nacl 0.9% 1000 Ml IV DIRECT DOMINGO Lorazepam 2 mg 04/21/19 14:14 Ativan IV Q1HR PRN CIWA-Ar 8-15 Pantoprazole Sodium 40 mg 04/21/19 22:00 04/22/19 10:22 Protonix IV 40 mg BID DOMINGO Administration Sodium Chloride 10 ml 04/21/19 22:00 04/22/19 10:22 Sodium Chloride Flush Syringe 10 Ml IV 10 ml BID DOMINGO Administration Sodium Chloride 10 ml 04/21/19 13:47 Sodium Chloride Flush Syringe 10 Ml IV PRN PRN LINE FLUSH
[2019-04-22 15:06] LABS: Hematocrit 51.3 % (30.3-42.9); Mean Corpuscular HGB Conc 33 % (30-34); Mean Corpuscular Volume 95 fl (79-97); Platelet Count 201 K/mm3 (140-440); Red Blood Count 5.42 M/mm3 (3.65-5.03); Red Cell Distribution Width 14.8 % (13.2-15.2)
[2019-04-22 16:25] LABS: Basophils % (Manual) 0 % (0.0-1.8); Eosinophils % (Manual) 0 % (0.0-4.3); Total Cells Counted 100
[2019-04-22 16:26] LABS: Platelet Estimate Consistent w Auto; RBC Morphology Normal
[2019-04-22] MEDS ORDERED: PROPOFOL 200 MG/20 ML VIAL IV ONE ×2 (16:38)
[2019-04-22] MEDS ORDERED: SODIUM CHLORIDE 0.9% 1000 ML 1,000 ML ONE (16:43)
--- NOTE | 2019-04-22 18:12 | Operative Report ---
Operative Report Operative Report: DOS: 04/22/19 SURGEON: Kike Ryan MD EGD WITH clip REPORT PREOPERATIVE DIAGNOSIS and POSTOPERATIVE DIAGNOSIS: GI bleed ESTIMATED BLOOD LOSS: Minimal DESCRIPTION OF PROCEDURE: A high-resolution EGD scope was passed through the oropharynx, esophagus, stomach, and second portion of duodenum. The scope was carefully withdrawn. Retroflexion was performed in the stomach. At the end of the procedure, the scope was cleaned using normal technique. Vital signs monitored continuously throughout. SEDATION: Provided by [facility]. COMPLICATIONS: None. FINDINGS: * No gross lesions in the entire duodenum * Multiple gastric ulcers in the gastric antrum and body and stomach, ranging in size from 2 mm to 1 cm, linear, mostly superficial though some were slightly deeper and superficial. Very friable to touch. One of the ulcers in the gastric body had a visible vessel therefore clip was deployed to decrease risk of recurrent GI bleed * GE junction at 39 cm from the incisors * Severe esophagitis in the distal 9 cm of the esophagus with multiple large superficial nonbleeding ulcers RECOMMENDATIONS: * Severe ulceration of esophagus and stomach with high-risk stigmata likely source of the patient's GI bleed. H. pylori IgG ordered * Continue twice a day PPI and add Carafate. * Normally would consider colonoscopy tomorrow, however patient is lethargic and I am concerned about her aspiration risk with GoLYTELY prep. Additionally she is no longer bleeding, stool is brown, and the ulcers in the stomach are the likely source of the bleeding. Therefore recommend continue to monitor clinically and she should have an outpatient colonoscopy, but if she does bleed again will require inpatient colonoscopy * Patient will require repeat EGD in 4-6 weeks to ensure healing of ulcers
[2019-04-22] MEDS: SUCRALFATE 1 GM/10 ML ORAL LIQD PO SCH (22:44)
[2019-04-23] MEDS ORDERED: MORPHINE 2 MG/1 ML INJ IV ONE (02:55)
--- NOTE | 2019-04-23 07:45 | Anesthesia Consultation ---
Anesthesia Consult and Med Hx Date of service: 04/22/19 - Airway Anesthetic Teeth Evaluation: Poor ROM Head & Neck: Adequate Mental/Hyoid Distance: Adequate Mallampati Class: Class III Intubation Access Assessment: Probably Good - Pulmonary Exam CTA: Yes - Cardiac Exam Cardiac Exam: RRR - Pre-Operative Health Status ASA Pre-Surgery Classification: ASA3 Proposed Anesthetic Plan: MAC - Pulmonary Hx Smoking: Yes Hx Asthma: No COPD: No Hx Pneumonia: No - Cardiovascular System Hx Hypertension: Yes - Endocrine Hx End Stage Renal Disease: No - Other Systems Hx Alcohol Use: Yes Hx Substance Use: Yes
--- NOTE | 2019-04-23 07:47 | Anesthesia Day of Surgery ---
Anesthesia Day of Surgery - Day of Surgery Patient Examined: Yes Patient H&P Reviewed: Yes Patient is NPO: Yes Beta Blockers: No
[2019-04-23] MEDS: SUCRALFATE 1 GM/10 ML ORAL LIQD PO SCH ×2 (08:10→12:05)
[2019-04-23] MEDS: PANTOPRAZOLE 40 MG INJ IV SCH (10:30)
[2019-04-23] MEDS: MORPHINE 2 MG/1 ML INJ IV PRN ×2 (10:31→14:09)
--- NOTE | 2019-04-23 11:35 | Gastroenterology Progress Note ---
<DOMINIQUE CELAYA - Last Filed: 04/23/19 11:43> Assessment and Plan 1.GI bleed 2.ETOH -H/H 17.0/51.3 -continue to monitor and transfuse as needed -bleeding scan negative upon admission -no active signs of bleeding overnight or this am -s/p EGD yesterday that showed: No gross lesions in the entire duodenum * Multiple gastric ulcers in the gastric antrum and body and stomach, ranging in size from 2 mm to 1 cm, linear, mostly superficial though some were slightly deeper and superficial. Very friable to touch. One of the ulcers in the gastric body had a visible vessel therefore clip was deployed to decrease risk of recurrent GI bleed * GE junction at 39 cm from the incisors * Severe esophagitis in the distal 9 cm of the esophagus with multiple large superficial nonbleeding ulcers -etiology-Severe ulceration of esophagus and stomach with high-risk stigmata likely source of the patient's GI bleed -clinically, patient stable. Reports continued epigastric discomfort but no N/V. Tolerating small amounts of liquids. -continue PPI and carafate -avoid NSAIDs -alcohol cessation -continue supportive care -if re-bleeds, will need inpatient colonoscopy (otherwise colon can be done as outpatient) -will likely require repeat EGD in 4-6 weeks to ensure healing of ulcers -will follow Subjective Date of service: 04/23/19 Principal diagnosis: GI bleed Interval history: No acute distress or active signs of bleeding overnight or this am per pt/nursing. C/o continued epigastric discomfort but no N/V. Tolerating small amount of liquids. Objective - Constitutional Vitals: Temp Pulse Resp BP Pulse Ox 98.3 F 74 23 138/75 98 04/23/19 08:00 04/23/19 06:00 04/23/19 06:00 04/23/19 06:00 04/23/19 06:00 General appearance: no acute distress - Respiratory Respiratory effort: normal - Cardiovascular Rhythm: regular - Gastrointestinal General gastrointestinal: Present: soft, tender (epigastric area), non- distended, normal bowel sounds - Neurologic Neurological: alert and oriented x3 - Labs CBC & Chem 7: 04/22/19 14:50 04/21/19 10:10 Labs: Laboratory Results - last 24 hr 12/25/19 12/26/19 10:10 14:50 WBC 13.9 H RBC 5.42 H Hgb 17.0 H Hct 51.3 H MCV 95 MCH 31 MCHC 33 RDW 14.8 Plt Count 201 Add Manual Diff Complete Total Counted 100 Seg Neuts % (Manual) 90.0 H Band Neutrophils % 0 Lymphocytes % (Manual) 4.0 L Reactive Lymphs % (Man) 0 Monocytes % (Manual) 6.0 Eosinophils % (Manual) 0 Basophils % (Manual) 0 Metamyelocytes % 0 Myelocytes % 0 Promyelocytes % 0 Blast Cells % 0 Nucleated RBC % Not Reportable Seg Neutrophils # Man 12.5 H Band Neutrophils # 0.0 Lymphocytes # (Manual) 0.6 L Abs React Lymphs (Man) 0.0 Monocytes # (Manual) 0.8 Eosinophils # (Manual) 0.0 Basophils # (Manual) 0.0 Metamyelocytes # 0.0 Myelocytes # 0.0 Promyelocytes # 0.0 Blast Cells # 0.0 WBC Morphology Not Reportable Hypersegmented Neuts Not Reportable Hyposegmented Neuts Not Reportable Hypogranular Neuts Not Reportable Smudge Cells Not Reportable Toxic Granulation Not Reportable Toxic Vacuolation Not Reportable Dohle Bodies Not Reportable Pelger-Huet Anomaly Not Reportable Kelsey Rods Not Reportable Platelet Estimate Consistent w auto Clumped Platelets Not Reportable Plt Clumps, EDTA Not Reportable Large Platelets Not Reportable Giant Platelets Not Reportable Platelet Satelliting Not Reportable Plt Morphology Comment Not Reportable RBC Morphology Normal Dimorphic RBCs Not Reportable Polychromasia Not Reportable Hypochromasia Not Reportable Poikilocytosis Not Reportable Anisocytosis Not Reportable Microcytosis Not Reportable Macrocytosis Not Reportable Spherocytes Not Reportable Pappenheimer Bodies Not Reportable Sickle Cells Not Reportable Target Cells Not Reportable Tear Drop Cells Not Reportable Ovalocytes Not Reportable Helmet Cells Not Reportable [place] Bodies Not Reportable [place] Rings Not Reportable [place] Cells Not Reportable Bite Cells Not Reportable Crenated Cell Not Reportable Elliptocytes Not Reportable Acanthocytes (Spur) Not Reportable Rouleaux Not Reportable Hemoglobin C Crystals Not Reportable Schistocytes Not Reportable Malaria parasites Not Reportable [place] Bodies Not Reportable Hem Pathologist Commnt No Blood Type A NEGATIVE Antibody Screen Negative Crossmatch See Detail <HAYLEY WANG Last Filed: 04/23/19 17:58> Assessment and Plan Patient seen and examined, agree with the advanced practitioners assessment and plan with the following additions Patient still with significant abdominal pain however this is likely due to her multiple gastric ulcers continue Carafate and PPI monitor hemoglobin anticipate gradual improvement of her abdominal pain once she has her pain controlled can tolerate a diet and remains with stable hemoglobin and no more hematochezia we will sign off and she should follow-up as an outpatient and will require repeat EGD to ensure healing of the ulcers - Patient Problems (1) Lower GI bleeding Current Visit: Yes Status: Acute Objective - Constitutional Vitals: Temp Pulse Resp BP Pulse Ox 98.4 F 82 22 144/84 98 04/23/19 12:00 04/23/19 13:00 04/23/19 13:00 04/23/19 13:00 04/23/19 13:00 - Labs CBC & Chem 7: 04/22/19 14:50 04/23/19 15:21 Labs: Laboratory Results - last 24 hr 04/21/19 04/23/19 10:10 15:21 Sodium 133 L Potassium 3.8 Chloride 107.0 Carbon Dioxide 14 L Anion Gap 16 BUN 32 H Creatinine 1.0 D Estimated GFR 56 BUN/Creatinine Ratio 32 Glucose 98 Calcium 8.6 Blood Type A NEGATIVE Antibody Screen Negative Crossmatch See Detail
--- NOTE | 2019-04-23 12:45 | Progress Note ---
Assessment and Plan Assessment and plan: Acute lower GI bleed. EGD revealed no gross lesions in the entire duodenum. However, multiple gastric ulcers in the gastric antrum and body of stomach ranging from 2 mm to 1 cm. One ulcer had a visible vessel that was clipped. Also, severe esophagitis in the distal 9 cm of the esophagus with multiple large superficial nonbleeding ulcers. Continue PPI and carafate. Avoid NSAIDs and implement alcohol cessation. If the patient rebleeds, she will need inpatient colonoscopy (otherwise colon can be done as outpatient) Acute kidney injury. Continue IV fluid resuscitation. Follow-up BMP. If no significant improvement, we will consult nephrology. Check renal ultrasound. SIRS. Follow-up chest x-ray, urinalysis and continue empiric antibiotics EtOH dependence. Continue CIWA protocol. History Interval history: No new issues overnight. Hospitalist Physical - Constitutional Vitals: Temp Pulse Resp BP Pulse Ox 98.3 F 74 23 138/75 98 04/23/19 08:00 04/23/19 06:00 04/23/19 06:00 04/23/19 06:00 04/23/19 06:00 General appearance: Present: mild distress, disheveled - EENT Eyes: Present: PERRL, EOM intact ENT: hearing intact, clear oral mucosa, dentition normal - Neck Neck: Present: supple, normal ROM - Respiratory Respiratory effort: normal Respiratory: bilateral: CTA - Cardiovascular Rhythm: regular Heart Sounds: Present: S1 & S2. Absent: gallop, rub - Extremities Extremities: no ischemia, No edema, Full ROM - Abdominal General gastrointestinal: soft, non-tender, non-distended, normal bowel sounds - Integumentary Integumentary: Present: clear, warm, dry - Neurologic Neurologic: CNII-XII intact, moves all extremities Results - Labs CBC & Chem 7: 04/22/19 14:50 04/21/19 10:10 Labs: Laboratory Last Values WBC 13.9 K/mm3 (4.5-11.0) H 04/22/19 14:50 RBC 5.42 M/mm3 (3.65-5.03) H 04/22/19 14:50 Hgb 17.0 gm/dl (10.1-14.3) H 04/22/19 14:50 Hct 51.3 % (30.3-42.9) H 04/22/19 14:50 MCV 95 fl (79-97) 04/22/19 14:50 MCH 31 pg (28-32) 04/22/19 14:50 MCHC 33 % (30-34) 04/22/19 14:50 RDW 14.8 % (13.2-15.2) 04/22/19 14:50 Plt Count 201 K/mm3 (140-440) 04/22/19 14:50 Lymph % (Auto) 6.7 % (13.4-35.0) L 04/22/19 01:52 [place] % (Auto) 9.5 % (0.0-7.3) H 04/22/19 01:52 Eos % (Auto) 0.5 % (0.0-4.3) 04/22/19 01:52 Baso % (Auto) 0.3 % (0.0-1.8) 04/22/19 01:52 Lymph # 0.8 K/mm3 (1.2-5.4) L 04/22/19 01:52 [place] # 1.2 K/mm3 (0.0-0.8) H 04/22/19 01:52 Eos # 0.1 K/mm3 (0.0-0.4) 04/22/19 01:52 Baso # 0.0 K/mm3 (0.0-0.1) 04/22/19 01:52 Add Manual Diff Complete 04/22/19 14:50 Total Counted 100 04/22/19 14:50 Seg Neutrophils % 83.0 % (40.0-70.0) H 04/22/19 01:52 Seg Neuts % (Manual) 90.0 % (40.0-70.0) H 04/22/19 14:50 Band Neutrophils % 0 % 04/22/19 14:50 Lymphocytes % (Manual) 4.0 % (13.4-35.0) L 04/22/19 14:50 Reactive Lymphs % (Man) 0 % 04/22/19 14:50 Monocytes % (Manual) 6.0 % (0.0-7.3) 04/22/19 14:50 Eosinophils % (Manual) 0 % (0.0-4.3) 04/22/19 14:50 Basophils % (Manual) 0 % (0.0-1.8) 04/22/19 14:50 Metamyelocytes % 0 % 04/22/19 14:50 Myelocytes % 0 % 04/22/19 14:50 Promyelocytes % 0 % 04/22/19 14:50 Blast Cells % 0 % 04/22/19 14:50 Nucleated RBC % Not Reportable 04/22/19 14:50 Seg Neutrophils # 10.2 K/mm3 (1.8-7.7) H 04/22/19 01:52 Seg Neutrophils # Man 12.5 K/mm3 (1.8-7.7) H 04/22/19 14:50 Band Neutrophils # 0.0 K/mm3 04/22/19 14:50 Lymphocytes # (Manual) 0.6 K/mm3 (1.2-5.4) L 04/22/19 14:50 Abs React Lymphs (Man) 0.0 K/mm3 04/22/19 14:50 Monocytes # (Manual) 0.8 K/mm3 (0.0-0.8) 04/22/19 14:50 Eosinophils # (Manual) 0.0 K/mm3 (0.0-0.4) 04/22/19 14:50 Basophils # (Manual) 0.0 K/mm3 (0.0-0.1) 04/22/19 14:50 Metamyelocytes # 0.0 K/mm3 04/22/19 14:50 Myelocytes # 0.0 K/mm3 04/22/19 14:50 Promyelocytes # 0.0 K/mm3 04/22/19 14:50 Blast Cells # 0.0 K/mm3 04/22/19 14:50 WBC Morphology Not Reportable 04/22/19 14:50 Hypersegmented Neuts Not Reportable 04/22/19 14:50 Hyposegmented Neuts Not Reportable 04/22/19 14:50 Hypogranular Neuts Not Reportable 04/22/19 14:50 Smudge Cells Not Reportable 04/22/19 14:50 Toxic Granulation Not Reportable 04/22/19 14:50 Toxic Vacuolation Not Reportable 04/22/19 14:50 Dohle Bodies Not Reportable 04/22/19 14:50 Pelger-Huet Anomaly Not Reportable 04/22/19 14:50 Kelsey Rods Not Reportable 04/22/19 14:50 Platelet Estimate Consistent w auto 04/22/19 14:50 Clumped Platelets Not Reportable 04/22/19 14:50 Plt Clumps, EDTA Not Reportable 04/22/19 14:50 Large Platelets Not Reportable 04/22/19 14:50 Giant Platelets Not Reportable 04/22/19 14:50 Platelet Satelliting Not Reportable 04/22/19 14:50 Plt Morphology Comment Not Reportable 04/22/19 14:50 RBC Morphology Normal 04/22/19 14:50 Dimorphic RBCs Not Reportable 04/22/19 14:50 Polychromasia Not Reportable 04/22/19 14:50 Hypochromasia Not Reportable 04/22/19 14:50 Poikilocytosis Not Reportable 04/22/19 14:50 Anisocytosis Not Reportable 04/22/19 14:50 Microcytosis Not Reportable 04/22/19 14:50 Macrocytosis Not Reportable 04/22/19 14:50 Spherocytes Not Reportable 04/22/19 14:50 Pappenheimer Bodies Not Reportable 04/22/19 14:50 Sickle Cells Not Reportable 04/22/19 14:50 Target Cells Not Reportable 04/22/19 14:50 Tear Drop Cells Not Reportable 04/22/19 14:50 Ovalocytes Not Reportable 04/22/19 14:50 Helmet Cells Not Reportable 04/22/19 14:50 [place] Bodies Not Reportable 04/22/19 14:50 [place] Rings Not Reportable 04/22/19 14:50 [place] Cells Not Reportable 04/22/19 14:50 Bite Cells Not Reportable 04/22/19 14:50 Crenated Cell Not Reportable 04/22/19 14:50 Elliptocytes Not Reportable 04/22/19 14:50 Acanthocytes (Spur) Not Reportable 04/22/19 14:50 Rouleaux Not Reportable 04/22/19 14:50 Hemoglobin C Crystals Not Reportable 04/22/19 14:50 Schistocytes Not Reportable 04/22/19 14:50 Malaria parasites Not Reportable 04/22/19 14:50 Riley Bodies Not Reportable 04/22/19 14:50 Hem Pathologist Commnt No 04/22/19 14:50 PT 13.8 Sec. (12.2-14.9) 04/21/19 10:10 INR 1.05 (0.87-1.13) 04/21/19 10:10 APTT 20.1 Sec. (24.2-36.6) L 04/21/19 10:10 Sodium 138 mmol/L (137-145) 04/21/19 10:10 Potassium 4.6 mmol/L (3.6-5.0) 04/21/19 10:10 Chloride 98.6 mmol/L (98-107) 04/21/19 10:10 Carbon Dioxide 17 mmol/L (22-30) L 04/21/19 10:10 Anion Gap 27 mmol/L 04/21/19 10:10 BUN 49 mg/dL (7-17) H 04/21/19 10:10 Creatinine 3.5 mg/dL (0.7-1.2) H 04/21/19 10:10 Estimated GFR 13 ml/min 04/21/19 10:10 BUN/Creatinine Ratio 14 % 04/21/19 10:10 Glucose 124 mg/dL (65-100) H 04/21/19 10:10 Lactic Acid 1.80 mmol/L (0.7-2.0) 04/21/19 11:43 Calcium 9.1 mg/dL (8.4-10.2) 04/21/19 10:10 Total Bilirubin 1.80 mg/dL (0.1-1.2) H 04/21/19 10:10 Direct Bilirubin 1.2 mg/dL (0-0.2) H 04/21/19 10:10 Indirect Bilirubin 0.6 mg/dL 04/21/19 10:10 AST 102 units/L (5-40) H 04/21/19 10:10 ALT 82 units/L (7-56) H 04/21/19 10:10 Alkaline Phosphatase 150 units/L (35-129) H 04/21/19 10:10 Ammonia 59.0 umol/L (25-60) 04/21/19 10:39 Troponin T < 0.010 ng/mL (0.00-0.029) 04/21/19 11:43 Total Protein 7.5 g/dL (6.3-8.2) 04/21/19 10:10 Albumin 3.5 g/dL (3.9-5) L 04/21/19 10:10 Albumin/Globulin Ratio 0.9 % 04/21/19 10:10 Lipase 32 units/L (13-60) 04/21/19 10:10 Urine Color Sheeba (Yellow) 04/21/19 23:14 Urine Turbidity Slightly-cloudy (Clear) 04/21/19 23:14 Urine pH 5.0 (5.0-7.0) 04/21/19 23:14 Ur Specific [place] 1.016 (1.003-1.030) 04/21/19 23:14 Urine Protein 30 mg/dl mg/dL (Negative) 04/21/19 23:14 Urine Glucose (UA) Neg mg/dL (Negative) 04/21/19 23:14 Urine Ketones Neg mg/dL (Negative) 04/21/19 23:14 Urine Blood Lg (Negative) 04/21/19 23:14 Urine Nitrite Neg (Negative) 04/21/19 23:14 Ur Reducing Substances Not Reportable 04/21/19 23:14 Urine Bilirubin Neg (Negative) 04/21/19 23:14 Urine Ictotest Not Reportable 04/21/19 23:14 Urine Urobilinogen 4.0 mg/dL (<2.0) 04/21/19 23:14 Ur Leukocyte Esterase Tr (Negative) 04/21/19 23:14 Urine WBC (Auto) 8.0 /HPF (0.0-6.0) H 04/21/19 23:14 Urine RBC (Auto) 12.0 /HPF (0.0-6.0) 04/21/19 23:14 U Epithel Cells (Auto) 3.0 /HPF (0-13.0) 04/21/19 23:14 Urine Bacteria (Auto) 1+ /HPF (Negative) 04/21/19 23:14 Urine Creatinine 92.6 mg/dL (0.1-20.0) H 04/21/19 23:26 Urine Sodium 77 mmol/L 04/21/19 23:26 Blood Type A NEGATIVE 04/21/19 10:10 Antibody Screen Negative 04/21/19 10:10 Crossmatch See Detail 04/21/19 10:10 Active Medications - Current Medications Current Medications: Generic Name Dose Route Start Last Admin Trade Name Freq PRN Reason Stop Dose Admin Albuterol 2.5 mg 04/21/19 13:47 Proventil IH Q3HRT PRN Shortness Of Breath Cyclobenzaprine HCl 10 mg 04/21/19 13:48 Flexeril PO TID PRN Muscle Spasm Sodium Chloride 1,000 mls @ 42 mls/hr 04/21/19 14:00 Nacl 0.9% 1000 Ml IV DIRECT DOMINGO Lorazepam 2 mg 04/21/19 14:14 Ativan IV Q1HR PRN CIWA-Ar 8-15 Morphine Sulfate 2 mg 04/23/19 10:30 04/23/19 10:31 Morphine IV 2 mg Q4H PRN Administration Pain, Moderate (4-6) Pantoprazole Sodium 40 mg 04/21/19 22:00 04/23/19 10:30 Protonix IV 40 mg BID DOMINGO Administration Sodium Chloride 10 ml 04/21/19 22:00 04/23/19 10:31 Sodium Chloride Flush Syringe 10 Ml IV 10 ml BID DOMINGO Administration Sodium Chloride 10 ml 04/21/19 13:47 Sodium Chloride Flush Syringe 10 Ml IV PRN PRN LINE FLUSH Sucralfate 1 gm 04/22/19 22:00 04/23/19 08:10 Carafate PO 1 gm ACHS DOMINGO Administration
[2019-04-23 15:55] LABS: Calcium 8.6 mg/dL (8.4-10.2)
[2019-04-23] MEDS ORDERED: SODIUM CHLORIDE 0.9% 1000 ML 1,000 ML IV SCH (16:00)
--- NOTE | 2019-04-23 17:09 | Consultation ---
History of Present Illness - History of Present Illness 64-year-old lady with medical history of hypertension, hyperlipidemia admitted with acute kidney injury and GI bleed reports history of significant NSAID use Reports sudden blood per rectum Denies any fevers chills denies any abdominal pain denies any nausea vomiting denies any lower extremity swelling Past History Past Medical History: hypertension, other (see HPI) Past Surgical History: No surgical history, Other (reviewed) Social history: , smoking, alcohol abuse Family history: hypertension Medications and Allergies Allergies Allergy/AdvReac Type Severity Reaction Status Date / Time Penicillins Allergy Severe Anaphylaxis Verified 10/26/16 11:08 meperidine HCl [From Demerol] AdvReac Intermediate Angioedema Verified 10/26/16 11:08 Home Medications Medication Instructions Recorded Confirmed Last Taken Type amLODIPine 10 mg PO QDAY #30 tablet 10/28/15 Unknown Rx cloNIDine [Catapres] 0.2 mg PO Q12HR #60 tablet 10/28/15 Unknown Rx lisinopriL [Zestril TAB] 40 mg PO QDAY #30 tablet 10/28/15 Unknown Rx Cyclobenzaprine [Flexeril] 10 mg PO TID PRN #12 tablet 10/26/16 Unknown Rx Ibuprofen [Motrin] 600 mg PO Q8H PRN #20 tablet 10/26/16 Unknown Rx Active Meds: Active Medications Albuterol (Proventil) 2.5 mg IH Q3HRT PRN PRN Reason: Shortness Of Breath Cyclobenzaprine HCl (Flexeril) 10 mg PO TID PRN PRN Reason: Muscle Spasm Sodium Chloride (Nacl 0.9% 1000 Ml) 1,000 mls @ 125 mls/hr IV DIRECT DOMINGO Lorazepam (Ativan) 2 mg IV Q1HR PRN PRN Reason: CIWA-Ar 8-15 Last Admin: 04/23/19 14:09 Dose: 2 mg Documented by: Morphine Sulfate (Morphine) 2 mg IV Q4H PRN PRN Reason: Pain, Moderate (4-6) Last Admin: 04/23/19 14:09 Dose: 2 mg Documented by: Pantoprazole Sodium (Protonix) 40 mg IV BID [facility] Last Admin: 04/23/19 10:30 Dose: 40 mg Documented by: Sodium Chloride (Sodium Chloride Flush Syringe 10 Ml) 10 ml IV BID [facility] Last Admin: 04/23/19 10:31 Dose: 10 ml Documented by: Sodium Chloride (Sodium Chloride Flush Syringe 10 Ml) 10 ml IV PRN PRN PRN Reason: LINE FLUSH Sucralfate (Carafate) 1 gm PO [facility] Last Admin: 04/23/19 12:05 Dose: 1 gm Documented by: Review of Systems Constitutional: anorexia, fatigue, poor appetite Ears, nose, mouth and throat: no ear pain, no ear discharge Breasts: no deferred, no change in shape Cardiovascular: no chest pain, no orthopnea, no palpitations Respiratory: no cough, no cough with sputum Gastrointestinal: abdominal pain, nausea, vomiting, BRBPR Genitourinary Female: no dyspareunia, no dysmenorrhea Rectal: pain, no incontinence Integumentary: no deferred, no rash, no pruritis Neurological: no head injury, no transient paralysis Psychiatric: no anxiety, no memory loss Endocrine: no cold intolerance, no heat intolerance Hematologic/Lymphatic: no easy bruising, no easy bleeding Allergic/Immunologic: no allergic rhinitis Exam - Vital Signs Vital signs: Vital Signs Resp 13 04/21/19 09:51 - General Appearance General appearance: well-developed, well-nourished EENT: ATNC, PERRL Neck: Present: neck supple Respiratory: Decreased Breath Sounds Heart: regular Gastrointestinal: Present: normal, normoactive bowel sounds Neurologic: alert and oriented x3, CN 3-12 intact Psychiatric: mood/affect appropriate Results - Lab Results 04/22/19 14:50 04/23/19 15:21 Most recent lab results Calcium 8.6 mg/dL (8.4-10.2) 04/23/19 15:21 Urine Creatinine 92.6 mg/dL (0.1-20.0) H 04/21/19 23:26 Urine Sodium 77 mmol/L 04/21/19 23:26 Assessment and Plan - Patient Problems (1) SHAZIA (acute kidney injury) Current Visit: Yes Status: Acute Plan to address problem: Acute kidney injury Baseline creatinine 0.6 mg/DL Admission creatinine 3.5 current creatinine today is 1.0 much improved Continue fluid hydration Etiology acute kidney injury secondary to GI bleed and NSAID use (2) GI bleed Current Visit: Yes Status: Acute Qualifiers: GI bleed type/associated pathology: melena Qualified Code(s): K92.1 - Melena Plan to address problem: GI bleeding Avoid NSAIDs Trend CBC (3) Metabolic acidosis Current Visit: Yes Status: Acute Plan to address problem: Largely non-anion gap acidosis We'll add bicarbonate infusion (4) Hyponatremia Current Visit: Yes Status: Acute Plan to address problem: Hyponatremia Continue bicarbonate Infusion
[2019-04-23] MEDS ORDERED: SODIUM BICARBONATE 150 MEQ in DEXTROSE 5% IN WATER 1,000 ML IV SCH (18:00)
[2019-04-23 18:48] VITALS: BP 154/97
--- NOTE | 2019-04-23 18:56 | Ultrasound Report ---
ULTRASOUND RENAL INDICATION / CLINICAL INFORMATION: ARF. COMPARISON: None available. FINDINGS: RIGHT KIDNEY: - Length = 8.3 cm. [Normal > 9.0 cm] - Parenchymal Thickness = 1.5 cm. [Normal > 1.5 cm] - Echogenicity: Normal -- hypoechoic or isoechoic to liver/spleen. - Hydronephrosis: None. - Cyst or mass: No significant abnormality. LEFT KIDNEY: - Length = 9.7 cm. [Normal > 9.0 cm] - Parenchymal Thickness = 1.6 cm. [Normal > 1.5 cm] - Echogenicity: Normal -- hypoechoic or isoechoic to liver/spleen. - Hydronephrosis: None. - Cyst or mass: No significant abnormality. URINARY BLADDER: No significant abnormality. ADDITIONAL FINDINGS: None. IMPRESSION: 1. Slightly small right kidney compared to the left. 2. No evidence of medical renal disease or hydronephrosis. Renal Parenchymal Thickness Parenchyma = Cortex + Medullary Pyramid - Normal >= 1.5 cm - Mild thinning = 1.0-1.49 cm - Moderate thinning = 0.5-0.99 cm - Severe thinning < 0.5 cm Signer Name: Tico Sampson MD Signed: 04/23/2019 6:52 PM Workstation Name: [id number]
--- NOTE | 2019-04-24 07:39 | Discharge Summary ---
Providers - Providers Date of Admission: 04/21/19 13:47 Date of discharge: 04/24/19 Attending physician: SANTINO BLACKWELL 04/21/19 10:21 Consult to Physician [CONS] Stat Comment: Consulting Provider: VALERIA ROBLEDO Physician Instructions: Reason For Exam: LGIB hypotension 04/23/19 12:40 Consult to Physician [CONS] Routine Comment: Consulting Provider: ETHEL RICHARDS Physician Instructions: Reason For Exam: ARF [facility] Reason for admission: rectal bleeding Condition: Stable Hospital course: 64-year-old female who presented through the emergency department with admission diagnosis of rectal bleeding, EtOH abuse and acute kidney injury. Patient was seen by GI and nephrology in consultation. Patient was noted to have acute lower GI bleed with EGD revealing no gross lesions in the entire duodenum. However, multiple gastric ulcers in the gastric antrum and body of stomach ranging from 2 mm to 1 cm. One ulcer had a visible vessel that was clipped. Also, severe esophagitis in the distal 9 cm of the esophagus with multiple large superficial nonbleeding ulcers. The patient was treated with PPI and Carafate. Patient was instructed to avoid NSAIDs and stop alcohol. Patient was on CIWA protocol. The patient also received IV fluid hydration for acute kidney injury and creatinine went from 3.5 on admission to 1.0 and discharge. On 04/23/2019 at approximately 1755 patient was noted to have left AMA. Please see nurses note with regards to the encounter. Dedicated discharge time 35 minutes. Disposition: [id number] LEFT AGAINST MED ADVICE Time spent for discharge: 35 Core Measure Documentation - Palliative Care Palliative Care/ Comfort Measures: Not Applicable - Core Measures Any of the following diagnoses?: none Exam - Constitutional Vitals: Temp Pulse Resp BP Pulse Ox 98.4 F 89 24 154/97 96 04/23/19 12:00 04/23/19 17:00 04/23/19 17:00 04/23/19 18:42 04/23/19 17:00 Plan Follow up with: ANOOP LEE MD [Primary Care Provider] - 3-5 Days Forms: Accompanied Note
== END 2019-04-23 18:40 | disposition left against medical advice (07) | DRG 380 ==
LOC: ED 08:41 → IMCU 13:47
PROVIDERS: ADMIT Internal Medicine; ATTEND Hospitalist
PROC: 30233N1 Transfusion of Nonautologous Red Blood Cells into Peripheral Vein, Percutaneous Approach (ICD-10-PCS; principal; 2019-04-21)
PROC: 0W3P8ZZ Control Bleeding in Gastrointestinal Tract, Via Natural or Artificial Opening Endoscopic (ICD-10-PCS; 2019-04-22)
DX: K22.11 Ulcer of esophagus with bleeding (principal); N17.0 Acute kidney failure with tubular necrosis; N18.4 Chronic kidney disease, stage 4 (severe); R65.10 Systemic inflammatory response syndrome (SIRS) of non-infectious origin without acute organ dysfunction; F17.213 Nicotine dependence, cigarettes, with withdrawal; E87.1 Hypo-osmolality and hyponatremia; E87.2 Acidosis; K92.1 Melena; F17.210 Nicotine dependence, cigarettes, uncomplicated; F10.20 Alcohol dependence, uncomplicated; I95.9 Hypotension, unspecified; E78.5 Hyperlipidemia, unspecified; I12.9 Hypertensive chronic kidney disease with stage 1 through stage 4 chronic kidney disease, or unspecified chronic kidney disease; Z82.49 Family history of ischemic heart disease and other diseases of the circulatory system; Z88.0 Allergy status to penicillin; Z88.5 Allergy status to narcotic agent
CPT/HCPCS: 36415; 71045; 74176; 76770; 78278; 80048; 80076; 81001; 82140; 82270; 82570; 83690; 84300; 84484; 85007; 85025; 85610; 85730; 86850; 86900; 86901; 86920; 87040; 87086; 93005; 93010; 96361; 96365; 96366; 96367; 96375; G0378; A9560; C9113; J2060; J2185; J2270; J2704; J3411; J7030; J7040; J7070; P9016